=== PATIENT | male | born 1965 | race Two or more races ===

== ENCOUNTER 2024-11-30 08:46 | Inpatient (IN) | payer MEDICAID, OTHER ==
[~2024-11-30] VITALS: Ht 162.6 cm; Wt 67.1 kg
--- NOTE | 2024-11-30 09:15 | ED.PDOC ---
GI ASSESSMENT HPI Comments This is a 59 year old male presenting to the ED with chief complaint of diarrhea with blood in stools. Patient reports that he has been experiencing diarrhea for the past 2 weeks with associated blood in stools. Patient relays that he has history of ulcerative colitis, however, he is not currently on any antibiotics, steroids, or blood thinners. Patient denies any melena, abdominal pain, nausea, vomiting, fever, or chills. Chief Complaint: Diarrhea Time Seen by MD: 09:13 Reviewed Notes: Nurses Notes, Medications, Allergies Allergies: Coded Allergies: NO KNOWN ALLERGIES (Unverified , 11/30/24) Information Source: Patient Mode of Arrival: Ambulatory Timing: Weeks Duration: Since onset Prehospital treatment: None Quality: None Vomitus: None Stool: Blood Streaked, Watery Severity: Moderate Recent: None Recent Hx of: Diabetes, Ulcer Disease Pain Location: None Modifying Factors: Nothing Associated sign and symptoms: Diarrhea, Blood in Stool Past Medical History PAST MEDICAL HISTORY: DM, HTN Past Medical History (Other): Ulcerative Colitis, Polio Surgical History (Other): Lt hip surgery Family History Family History: Reviewed,noncontributory to illness Social History Smoker: Non-Smoker Alcohol: Denies ETOH Use Drugs: Denies Drug Use Lives In: Home Constitutional: denies: chills, diaphoresis, fatigue, fever, malaise, sweats, weakness, others EENTM: denies: blurred vision, double vision, ear bleeding, ear discharge, ear drainage, ear pain, ear ringing, eye pain, eye redness, hearing loss, mouth pain, mouth swelling, nasal discharge, nose bleeding, nose congestion, nose pain, photophobia, tearing, throat pain, throat swelling, voice changes, others Respiratory: denies: cough, hemoptysis, orthopnea, SOB at rest, shortness of breath, SOB with excertion, stridor, wheezing, others Cardiovascular: denies: chest pain, dizzy spells, diaphoresis, Dyspnea on exertion, edema, irregular heart beat, left arm pain, lightheadedness, palpitations, PND, syncope, others Gastrointestinal: reports: blood streaked bowels, diarrhea; denies: abdomen distended, abdominal pain, constipated, dysphagia, difficulty swallowing, mallorie temesis, melena, nausea, poor appetite, poor fluid intake, rectal bleeding, rectal pain, vomiting, others Genitourinary: denies: burning, dysuria, flank pain, frequency, hematuria, incontinence, penile discharge, penile sore, pain, testicle pain, testicle swelling, urgency, others Neurological: denies: dizziness, fainting, headache, left sided numbness, left sided weakness, numbness, paresthesia, pre-existing deficit, right sided numbness, right sided weakness, seizure, speech problems, tingling, tremors, weakness, others Musculoskeletal: denies: back pain, gout, joint pain, joint swelling, muscle pain, muscle stiffness, neck pain, others Integumetry: denies: bruises, change in color, change in hair/nails, dryness, laceration, lesions, lumps, rash, wounds, others Allergic/Immunocompromised: denies: Difficulty Healing, Frequent Infections, Hives, Itching, others Hematologic/Lymphatic: denies: anemia, blood clots, easy bleeding, easy bruising, swollen glands, others Endocrine: denies: excessive hunger, excessive sweating, excessive thirst, excessive urination, flushing, intolerance to cold, intolerance to heat, unexplained weight gain, unexplained weight loss, others Psychiatric: denies: anxiety, bipolar disorder, depression, hopeless, panic disorder, schizophrenia, sleepless, suicidal, others All Other Systems: Reviewed and Negative Physical Exam General Appearance: Moderate Distress, Normal HEENT: Normal ENT Inspection, Pharynx Normal, TMs Normal Neck: Full Range of Motion, Non-Tender, Normal, Normal Inspection Respiratory: Chest Non-Tender, Lungs Clear, No Accessory Muscle Use, No Respiratory Distress, Normal Breath Sounds Cardiovascular: No Edema, No JVD, No Murmur, No Gallop, Normal Peripheral Pu lses, Regular Rate/Rhythm Breast Exam: Deferred Gastrointestinal: No Organomegaly, Non Tender, No Pulsatile Mass, Normal Bowel Sounds, Soft Genitalia: Deferred Pelvic: Deferred Rectal: Deferred Extremities: Decreased range of motion (Left lower extremity affected by polio), No calf tenderness, Non-tender, No pedal edema Musculoskeletal : Apperance: Normal Neurologic: Alert, cath lab II-XII nml as Tested, Motor Weakness (Left lower extremity effects of by polio), Normal Affect, Normal Mood, No Sensory Deficits Cerebellar Function: NOT DONE Reflexes: NOT DONE Skin: Dry, Normal Color, Warm Peripheral Pulses: 3+ Radial (R), 3+ Radial (L) Lymphatic: No Adenopathy Was a procedure done? Was a procedure done?: No GI differential Dx Differential Diagnosis: Constipation, Diverticular disease, Esophagitis, Gastritis/PUD, Gastroenteritis X-Ray, Labs, Meds, VS Vital Signs Date Time Temp Pulse Resp B/P (MAP) Pulse Ox O2 Delivery O2 Flow Rate FiO2 11/30/24 09:36 97.9 87 18 120/69 (86) 97 97.9 11/30/24 08:47 97.9 94 18 129/85 95 97.9 Current Medications Medications (Trade) Dose Ordered Sig/Sourav Route Start Time Stop Time Status Last Admin Diphenoxylate HCl/ Atropine (Lomotil Tablet) 5 mg ONCE ONCE PO 11/30/24 09:15 11/30/24 09:16 DC 11/30/24 09:28 Patient alert. Complaining of diarrhea. History ulcerative colitis polio. Vitals stable. Was given Lomotil. Explained to the patient. Continue monitoring. Time of 1ST Reevaluation: 10:12 Reevaluation 1ST: Unchanged Patient Education/Counseling: Diagnosis, Treatment Family Education/Counseling: No Family Present SEPSIS Sepsis Screen Date sepsis recognized/suspect: Nov 30, 2024 Time Sepsis recognized/suspect: 0848 Recent Procedure: No On Antibiotic Therapy: No Respiratory Rate >20: No Heart Rate >90: No Temp<36 C (96.8 F) or >38.3 C: No SBP <90 or MAP <65 mmHG: No New Acute Mental Status Change: No Is the patient on CPAP, BIPAP,: No Physician Orders Complete Blood Count (11/30/24 09:11) Basic Metabolic Panel (11/30/24 09:11) Sodium Chloride 0.9% (11/30/24 09:15) Sodium Chloride 0.9% (11/30/24 09:15) Saline Lock (11/30/24 09:22) Vital Signs Date Time Temp Pulse Resp B/P (MAP) Pulse Ox O2 Delivery O2 Flow Rate FiO2 11/30/24 09:36 97.9 87 18 120/69 (86) 97 97.9 11/30/24 08:47 97.9 94 18 129/85 95 97.9 Medications Medications Dose Ordered Sig/Sourav Route Start Time Stop Time Status Last Admin Dose Admin Diphenoxylate HCl/ Atropine 5 mg ONCE ONCE PO 11/30/24 09:15 11/30/24 09:16 DC 11/30/24 09:28 Departure 1 Departure Time of Disposition: 09:38 Impression: Primary Impression: Colitis Disposition: ADMITTED INPATIENT Admit to: Med Surg Condition: Guarded Critical Care Note Critical Care Time?: No Stability Stability form required: No Heart Score Heart Score: Heart Score Response (Comments) Value History N/A 0 EKG N/A 0 Age N/A 0 Risk Factors N/A 0 Troponin N/A 0 Total 0 I personally scribed for YEN ACUÑA MD ([email or web address]) on 11/30/24 at 09:15. Electronically submitted by Junior Norwood ([email or web address]). YEN ACUÑA MD Nov 30, 2024 09:15
[2024-11-30] MEDS: DIPHENOXYLATE W/ATROPINE 2.5 MG TAB PO ONE (09:28)
[2024-11-30] MEDS: SODIUM CHLORIDE 0.9% 1,000 ML IV ONE ×2 (09:41)
[2024-11-30 09:52] LABS: Hematocrit 41.2 % (41.0-53.0); Hemoglobin 13.5 g/dL (13.5-17.5); Mean Corpuscular Hemoglobin 26.1 pg (28.0-32.0); Mean Corpuscular Volume 79.5 fL (80.0-100.0); Nucleated Red Blood Cells % 0.0 %
[2024-11-30 10:03] LABS: Chloride 105 mmol/L (98-107); Potassium 3.8 mmol/L (3.5-5.1); Sodium 139 mmol/L (136-145)
[2024-11-30 10:04] LABS: Anion Gap 9 (5-15); Carbon Dioxide 25 mmol/L (20-31)
[2024-11-30 10:05] LABS: Calcium 9.7 mg/dL (8.7-10.4)
[2024-11-30 10:09] LABS: BUN/Creatinine Ratio 15.5 (10.0-20.0); Blood Urea Nitrogen 15 mg/dL (9-23); Glucose 110 mg/dL (74-106)
--- NOTE | 2024-11-30 12:34 | DVHHP2 ---
History of Present Illness Reason for Visit: diarrhe and rectal bleeding History of Present Illness 59-year-old male with past medical history of type 2 diabetes mellitus, hypertension, ulcerative colitis, and right shoulder arthritis presents with 2 weeks of diarrhea associated with blood clots in the stool. He states he has a known diagnosis of ulcerative colitis and is on medication, with follow-up by a director craft center. His last colonoscopy was over a year ago. He denies fever, abdominal pain, nausea, vomiting, chest pain, or shortness of breath. No recent travel, sick contacts, or antibiotic use. Patient reports decreased oral intake over the past few days. reviewed labs and imaging from ed cbc unremarkable, cmp unremarkable, ns provided and lomital, will admit for iv hydration and gi consult Past Medical History See HPI above Past Surgical History See HPI above Past Social History The patient lives at home, denies smoking, alcohol or illicit drugs abuse. Review of Systems Constitutional: No: Fever, Chills, Sweats, Weakness, Malaise, Other Eyes: No: Pain, Vision change, Conjunctivae inflammation, Eyelid inflammation, Other, Redness ENT: No: Ear pain, Ear discharge, Nose pain, Nose discharge, Nose congestion, Mouth pain, Mouth swelling, Throat pain, Throat swelling, Other Respiratory: No: Cough, Dry, Shortness of breath, SOB with excertion, Wheezing, Hemoptysis, Pleuritic Pain, Sputum, Wheezing, Other Cardiovascular: No: Chest Pain, Palpitations, Orthopnea, Paroxysmal Noc. Dyspnea, Edema, Lt Headedness, Other Gastrointestinal: Abdominal Pain, Hematochezia; No: Nausea, Vomiting, Diarrhea, Constipation, Melena, Other Genitourinary: No Dysuria, No Frequency, No Incontinence, No Hematuria, No Retention, No Other Musculoskeletal: No: other, neck pain, shoulder pain, arm pain, back pain, hand pain, leg pain, foot pain Skin: No: Rash, Lesions, Jaundice, Bruising, Other Neurological: No: Weakness, Numbness, Incoordination, Change in speech, Confusion, Seizures, Other Allergies: Coded Allergies: NO KNOWN ALLERGIES (Unverified , 11/30/24) Exam Vital Signs Vital Signs Date Time Temp Pulse Resp B/P (MAP) Pulse Ox O2 Delivery O2 Flow Rate FiO2 11/30/24 09:36 87 18 97 Room Air 11/30/24 09:36 97.9 120/69 (86) 97.9 General Appearance: Alert, Oriented X3, Cooperative, No acute distress HEENT: Atraumatic, PERRLA, EOMI, Mucous membr. moist/pink Respiratory: Clear to auscultation, Normal air movement Cardiovascular: Regular rate, Normal S1, Normal S2, No murmurs Abdominal: Normal bowel sounds, Soft, No tenderness, No hepatospenomegaly, No masses Extremities: No clubbing, No cyanosis, No edema, Normal pulses, No tenderness/swelling Skin: No rashes, No breakdown, No significant lesion Neuro: Normal gait, Normal speech, Strength at 5/5 X4 ext, Normal tone, Sensa tion intact, Cranial nerves 3-12 NL Psych/Mental Status: Mental status NL, Mood NL Labs/Xrays I reviewed labs, imaging CT scan abdomen pelvis, EKG and all diagnostic studies on this patient from ED records and the medical chart Labs Test 11/30/24 09:20 Range/Units White Blood Count 3.8 L 4.4-10.8 10^3/uL Red Blood Count 5.18 4.5-5.90 10^6/uL Hemoglobin 13.5 13.5-17.5 g/dL Hematocrit 41.2 41.0-53.0 % Mean Corpuscular Volume 79.5 L 80.0-100.0 fL Mean Corpuscular Hemoglobin 26.1 L 28.0-32.0 pg Mean Corpuscular Hemoglobin Concent 32.8 32.0-36.0 g/dL Red Cell Distribution Width 18.2 H 11.8-14.3 % Platelet Count 291 140-450 10^3/uL Mean Platelet Volume 7.3 6.9-10.8 fL Neutrophils (%) (Auto) 56.5 37.0-80.0 % Lymphocytes (%) (Auto) 21.9 10.0-50.0 % Monocytes (%) (Auto) 17.8 H 0.0-12.0 % Eosinophils (%) (Auto) 3.5 0.0-7.0 % Basophils (%) (Auto) 0.3 0.0-2.0 % Neutrophils # (Auto) 2.1 1.6-8.6 10 ^3/uL Lymphocytes # (Auto) 0.8 0.4-5.4 10 ^3/uL Monocytes # (Auto) 0.7 0-1.3 10 ^3/uL Eosinophils # (Auto) 0.1 0-0.8 10 ^3/uL Basophils # (Auto) 0 0-0.2 10 ^3/uL Nucleated Red Blood Cells 0.0 % Sodium Level 139 136-145 mmol/L Potassium Level 3.8 3.5-5.1 mmol/L Chloride Level 105 98-107 mmol/L Carbon Dioxide Level 25 20-31 mmol/L Anion Gap 9 5-15 Blood Urea Nitrogen 15 9-23 mg/dL Creatinine 0.97 0.700-1.30 mg/dL Glomerular Filtration Rate Calc 90 >90 mL/min BUN/Creatinine Ratio 15.5 10.0-20.0 Serum Glucose 110 H 74-106 mg/dL Calcium Level 9.7 8.7-10.4 mg/dL SEPSIS Sepsis Screen Date sepsis recognized/suspect: Nov 30, 2024 Time Sepsis recognized/suspect: 847 Recent Procedure: No On Antibiotic Therapy: No Respiratory Rate >20: No Heart Rate >90: No Temp<36 C (96.8 F) or >38.3 C: No SBP <90 or MAP <65 mmHG: No New Acute Mental Status Change: No Is the patient on CPAP, BIPAP,: No Physician Orders Sodium Chloride 0.9% (11/30/24 09:15) Saline Lock (11/30/24 09:22) Ct Ab Pel Wo Con-No Oral Or Iv (11/30/24 12:31) Admit (11/30/24 12:31) Allergies (11/30/24 12:31) Code Status (11/30/24 12:31) 0.9% Ns 1000 Ml (11/30/24 12:45) Temazepam (Restoril) (11/30/24 12:45) Ondansetron Hcl (Zofran) (11/30/24 12:45) Complete Blood Count (12/01/24 04:00) Comprehensive Metabolic Panel (12/01/24 04:00) Condition: Stable (11/30/24 12:31) Clear Liq Diet (11/30/24 Lunch) BRP (11/30/24 12:31) Morphine Sulfate Injection (11/30/24 12:45) Sequential Compression Device (11/30/24 ) Nitroglycerin Sublingual (Ntrostat Subli (11/30/24 12:45) Stat Ekg For Chest Pain (11/30/24 12:31) Notify Md Of Changes From Base (11/30/24 12:31) Senior Planner For 24 Hours (11/30/24 12:31) Emergency Dysrhythmia Protocol (11/30/24 12:31) Rhythm Strips Once Every Shift (11/30/24 12:31) Oxygen By Nasal Cannula (11/30/24 12:31) Pantoprazole (Protonix) (11/30/24 12:45) Pantoprazole (Protonix) (12/01/24 10:00) * Gi Dvh Rocket Motor Mechanic (11/30/24 12:31) Clostridium Difficile Toxin (11/30/24 12:31) Vital Signs Date Time Temp Pulse Resp B/P (MAP) Pulse Ox O2 Delivery O2 Flow Rate FiO2 11/30/24 09:36 87 18 97 Room Air 11/30/24 09:36 97.9 87 18 120/69 (86) 97 97.9 11/30/24 08:47 97.9 94 18 129/85 95 97.9 Laboratory Tests Test 11/30/24 09:20 White Blood Count 3.8 10^3/uL (4.4-10.8) L Medications Medications Dose Ordered Sig/Sourav Route Start Time Stop Time Status Last Admin Dose Admin Diphenoxylate HCl/ Atropine 5 mg ONCE ONCE PO 11/30/24 09:15 11/30/24 09:16 DC 11/30/24 09:28 5 MG Sodium Chloride 1,000 ml @ 1,000 mls/hr Q1H ONCE IV 11/30/24 09:15 11/30/24 10:14 DC 11/30/24 09:41 1,000 MLS/HR Assessment/Plan Assessment/Plan 59 yr old male Ulcerative colitis flare with hematochezia requires GI evaluation, possible colonoscopy, and IV hydration. acute Ulcerative colitis flare with hematochezia ordered ct scan abd pelvis fu results GI consult for evaluation and management Consider colonoscopy if indicated to be determined by gi Continue home ulcerative colitis medications if pt provides dosage IV hydration and bowel rest as needed Monitor H/H every am; transfuse if Hb <7 g/dL or symptomatic acute Diarrhea with blood clots Send stool studies C. diff, culture Monitor frequency and character of stools chronic problems Type 2 diabetes mellitus Monitor glucose ACHS Hypertension Continue home antihypertensives Arthritis, right shoulder Continue supportive care and pain control as needed FEN / PPx Fluids: IV NS at maintenance rate Electrolytes: Monitor and replace as needed Nutrition: clr liquid for now DVT Prophylaxis: Hold pharmacologic prophylaxis until GI bleeding resolves; use SCDs GI Prophylaxis: PPI IV daily Disposition Admit to medical floor for GI evaluation, hydration, and monitoring. Plan discussed with: Patient My Orders Orders - TOR LEONARDO DNP Procedure Category Date Status Time Ct Ab Pel Wo Con-No CT 11/30/24 Verified Oral Or Iv 12:31 Admit ADMIT 11/30/24 Verified 12:31 Allergies LAZ 11/30/24 Verified 12:31 Code Status CODE 11/30/24 Verified 12:31 0.9% Ns 1000 Ml PHA 11/30/24 Verified 12:45 Temazepam (Restoril) PHA 11/30/24 Verified 12:45 Ondansetron Hcl PHA 11/30/24 Verified (Zofran) 12:45 Complete Blood Count LAB 12/01/24 Verified 04:00 Comprehensive LAB 12/01/24 Verified Metabolic Panel 04:00 Condition: Stable [facility] 11/30/24 Verified 12:31 Clear Liq Diet DIET 11/30/24 Verified Lunch BRP [facility] 11/30/24 Verified 12:31 Morphine Sulfate PHA 11/30/24 Verified Injection 12:45 Sequential [facility] 11/30/24 Verified Compression Device Nitroglycerin PHA 11/30/24 Verified Sublingual (Ntrostat 12:45 Stat Ekg For Chest [facility] 11/30/24 Verified Pain 12:31 Notify Md Of Changes [facility] 11/30/24 Verified From Base 12:31 Senior Planner For [facility] 11/30/24 Verified 24 Hours 12:31 Emergency Dysrhythmia [facility] 11/30/24 Verified Protocol 12:31 Rhythm Strips Once [facility] 11/30/24 Verified Every Shift 12:31 Oxygen By Nasal RT 11/30/24 Verified Cannula 12:31 Pantoprazole PHA 11/30/24 Verified (Protonix) 12:45 Pantoprazole PHA 12/01/24 Verified (Protonix) 10:00 * Gi Dvh Rocket Motor Mechanic CONS 11/30/24 Verified 12:31 Clostridium Difficile KEIRA 11/30/24 Verified Toxin 12:31 Date of Service: Nov 30, 2024 Billing Provider: TOR LEONARDO DNP Common Visit Codes: [id number] INP/OBS CARE (HIGH) TOR LEONARDO DNP Nov 30, 2024 12:34
[2024-11-30] MEDS ORDERED: TEMAZEPAM 15 MG CAP PO PRN (12:45)
[2024-11-30] MEDS ORDERED: MORPHINE SULFATE INJ 2 MG/ml SYRG IV PRN (12:45)
[2024-11-30] MEDS ORDERED: NITROGLYCERIN 0.4 MG SL TAB SL PRN (12:45)
[2024-11-30] MEDS ORDERED: ONDANSETRON HCL 4 MG/2 ML VIAL IV PRN (12:45)
--- NOTE | 2024-11-30 13:14 | DVH ---
CT CT AB PEL WO CON-NO ORAL OR IV INDICATION: acute lower gi bleed EXAM DATE: 11/30/2024 12:39 PM COMPARISON: None RADIATION DOSE: CTDIvol: 6 mGy, DLP: 332 mGy*cm PROCEDURE: Helical CT images were obtained of the abdomen and pelvis without IV contrast Sagittal and coronal reconstructions are provided. ORAL CONTRAST: None. ADDITIONAL IMAGES / REFORMATS: None All C T scans at this medical facility are performed using dose modulation techniques as appropriate to a p erformed exam including the following: Automated exposure control was utilized; adjustment of the MA and/or KV according to patient size; and use of iterative reconstruction technique. FINDINGS: LUNG BASE: Normal. LIVER: Normal. GALLBLADDER AND BILIARY TREE: No calcified gallstones. Normal caliber wall. No intra- or extrahepatic biliary ductal dilation. PANCREAS: Normal. SPLEEN: Normal. BOWEL: Normal appendix. ADRENALS: Normal. KIDNEYS AND URETER: Normal. BLADDER: Normal. REPRODUCTIVE ORGANS: Normal. LYMPH NODES:No lymphadenopathy. PERITONEUM: No ascites or free air. No other fluid collection. VESSELS: Scattered atherosclerotic calcifications are noted. RETROPERITONEUM: Normal. ABDOMINAL WALL: Normal. BONES: Scattered osseous degenerative changes are noted. 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 IMPRESSION: Fluid filled colon could be diarrhea with mild right hemicolon wall thickening could be colitis. Cassidy sylvie no intraluminal hyperdense material seen to suggest for bleed.
--- NOTE | 2024-11-30 14:38 | DVHINCON2 ---
GI Consult Consult Note GI consult note Date of Consultation: 11/30/2024 Chief Complaint: Rectal bleed diarrhea Referring Physician: Renzo CHIRINOS H&P: 59-year-old male with past medical history of DM, HTN, ulcerative colitis, right shoulder arthritis, polio, presents to ER with blood clots in stool and diarrhea. Patient is in ER lobby. Patient gives history of loose stool for the past two weeks, about 5-6 episodes of bowel movements per day, with red blood in stool. Patient has history of ulcerative colitis. Treated at [facility] with celgene medications. Last colonoscopy more than one year ago Past Medical History: Dm, HTN, ulcerative colitis, polio Past Surgical History: Left hip surgery Social History: NO smoking, drinking ETOH and use of illegal drugs. Family History: Noncontributory Review of Systems: Constitutional: no fever, chill, weight loss HEENT: no eye pain, no hearing loss, no oral lesion, no scleral icterus Heart: no chest pain, no chest pressure Lung: no cough, no dyspnea with exertion Abdomen: see HPI Physical exam: General: NAD, AAOX3 Chest: lung valverde clear to auscultation Heart: RRR, no murmur Abdomen: non-distended, no tenderness to palpation, +BS Labs: Labs Test 11/30/24 09:20 Range/Units White Blood Count 3.8 L 4.4-10.8 10^3/uL Red Blood Count 5.18 4.5-5.90 10^6/uL Hemoglobin 13.5 13.5-17.5 g/dL Hematocrit 41.2 41.0-53.0 % Mean Corpuscular Volume 79.5 L 80.0-100.0 fL Mean Corpuscular Hemoglobin 26.1 L 28.0-32.0 pg Mean Corpuscular Hemoglobin Concent 32.8 32.0-36.0 g/dL Red Cell Distribution Width 18.2 H 11.8-14.3 % Platelet Count 291 140-450 10^3/uL Mean Platelet Volume 7.3 6.9-10.8 fL Neutrophils (%) (Auto) 56.5 37.0-80.0 % Lymphocytes (%) (Auto) 21.9 10.0-50.0 % Monocytes (%) (Auto) 17.8 H 0.0-12.0 % Eosinophils (%) (Auto) 3.5 0.0-7.0 % Basophils (%) (Auto) 0.3 0.0-2.0 % Neutrophils # (Auto) 2.1 1.6-8.6 10 ^3/uL Lymphocytes # (Auto) 0.8 0.4-5.4 10 ^3/uL Monocytes # (Auto) 0.7 0-1.3 10 ^3/uL Eosinophils # (Auto) 0.1 0-0.8 10 ^3/uL Basophils # (Auto) 0 0-0.2 10 ^3/uL Nucleated Red Blood Cells 0.0 % Sodium Level 139 136-145 mmol/L Potassium Level 3.8 3.5-5.1 mmol/L Chloride Level 105 98-107 mmol/L Carbon Dioxide Level 25 20-31 mmol/L Anion Gap 9 5-15 Blood Urea Nitrogen 15 9-23 mg/dL Creatinine 0.97 0.700-1.30 mg/dL Glomerular Filtration Rate Calc 90 >90 mL/min BUN/Creatinine Ratio 15.5 10.0-20.0 Serum Glucose 110 H 74-106 mg/dL Calcium Level 9.7 8.7-10.4 mg/dL Imaging: CT abdomen pelvis IMPRESSION: Fluid filled colon could be diarrhea with mild right hemicolon wall thickening could be colitis. However no intraluminal hyperdense material seen to suggest for bleed. Assessment: Diarrhea Hematochezia Ulcerative colitis Plan: Discussed with Dr. Puga Home meds Prednisone 20 mg every day Monitor lab Stool for bacterial culture and C diff IV Flagyl We will continue to monitor patient Thank you for this consult Date of Service: Nov 30, 2024 Billing Provider: DAWN FONG Common Visit Codes: CONSULT ONLY Consultation Codes: [id number] CONSULT <60MIN DAWN FONG Nov 30, 2024 14:38
[2024-11-30] MEDS: SODIUM CHLORIDE 0.9% 1,000 ML IV SCH (14:56)
[2024-11-30] MEDS: PANTOPRAZOLE 40 MG/10 ML VIAL INJ IV ONE (15:01)
[2024-12-01] VITALS (8 sets, daily range): BP systolic 110–119; BP diastolic 57–76; PULSE 79–91; RESP 14–20; TEMP 97.8–98.4; O2SAT 0–98
[2024-12-01 06:40] LABS: Hematocrit 35.4 % (41.0-53.0); Hemoglobin 12.0 g/dL (13.5-17.5); Mean Corpuscular Hemoglobin 27.0 pg (28.0-32.0); Mean Corpuscular Volume 79.4 fL (80.0-100.0); Nucleated Red Blood Cells % 0.1 %
[2024-12-01 06:51] LABS: Alanine Aminotransferase 16 U/L (7-40); Anion Gap 12 (5-15); BUN/Creatinine Ratio 19.4 (10.0-20.0); Blood Urea Nitrogen 14 mg/dL (9-23); Calcium 8.9 mg/dL (8.7-10.4); Carbon Dioxide 22 mmol/L (20-31); Chloride 106 mmol/L (98-107); Potassium 3.6 mmol/L (3.5-5.1); Sodium 140 mmol/L (136-145); Total Protein 6.7 g/dL (5.7-8.2)
[2024-12-01 06:52] LABS: Albumin 4.0 g/dL (3.2-4.8); Alkaline Phosphatase 162 U/L (46-116); Bilirubin, Total 1.1 mg/dL (0.2-1.0); Glucose 56 mg/dL (74-106)
[2024-12-01] MEDS: PANTOPRAZOLE 40 MG/10 ML VIAL INJ IV SCH (09:22)
[2024-12-01] MEDS: predniSONE 20 MG TAB PO SCH (09:22)
--- NOTE | 2024-12-01 16:43 | DVHPN2 ---
Progress Note - Dictate Date Seen: Dec 01, 2024 Medical Necessity Reason Pt with a Central, PICC or Fol: No Subjective No new complaints, patient is sitting at the edge of the bed No rectal bleeding today in fact patient has not had a bowel movement Last colonoscopy was with [facility] one or two years ago and he was diagnosed with ulcerative colitis vital signs Vital Sign Date Time Temp Pulse Resp B/P (MAP) Pulse Ox O2 Delivery O2 Flow Rate FiO2 12/01/24 16:15 97.8 79 20 116/76 (89) 98 97.8 12/01/24 08:00 Room Air* 0 21 Total Intake and Output 11/30/24 11/30/24 12/01/24 15:00 23:00 07:00 Intake Total 1000 ml 125 ml Balance 1000 ml 125 ml medications Current Medications Medications Dose Ordered Sig/Sourav Route Start Time Stop Time Status Last Admin Dose Admin Sodium Chloride 1,000 ml @ 120 mls/hr Q8H20M IV 11/30/24 12:45 Temazepam 15 mg QHSP PRN PO 11/30/24 12:45 Ondansetron HCl 4 mg Q4HP PRN IV 11/30/24 12:45 Morphine Sulfate 2 mg Q4HPRN PRN IV 11/30/24 12:45 Nitroglycerin 0.4 mg Q5MINP PRN SL 11/30/24 12:45 Pantoprazole Sodium 40 mg DAILY IV 12/01/24 10:00 12/01/24 09:22 40 MG Prednisone 20 mg DAILY PO 12/01/24 10:00 12/01/24 09:22 20 MG Metronidazole 100 ml @ 100 mls/hr Q8H IV 12/01/24 02:30 12/01/24 09:22 100 MLS/HR Mesalamine 800 mg TID PO 12/01/24 22:00 UNV objective General: NAD, AAOX3 Chest: lung valverde clear to auscultation Heart: RRR, no murmur Abdomen: non-distended, no tenderness to palpation, +BS laboratory and microbiology Laboratory Tests 12/01/24 04:20 Test 12/01/24 04:20 Range/Units Serum Glucose 56 L 74-106 mg/dL Problems(with codes): (1) Colitis (2) Abnormal finding on GI tract imaging Prognosis Plan Advance diet as tolerated I started her on mesalamine 800 mg p.o. three times a day Prednisone 20 mg p.o. daily Discharge planning if the patient remains stable over the next 24 hours He was advised outpatient follow up with me in 4-6 weeks to discuss elective colonoscopy or follow up with his spike machine operator Plan discussed with: Patient, Spouse, Other (Nurse and Dr Lee) MINNA ENGLAND MD Dec 01, 2024 16:43
--- NOTE | 2024-12-01 17:09 | DVHPN2 ---
Subjective I am assuming the care of the patient promptly on meds who was under the care of the hospitalist team. Is a follow up on ulcerative colitis flare up. Patient currently denies any blood in the stool. Changes from previous H/P or p: No Changes Eyes: No Pain, No Vision change, No Conjunctivae inflammation, No Eyelid inflammation, No Other, No Redness ENT: No Ear pain, No Ear discharge, No Nose pain, No Nose discharge, No Nose congestion, No Mouth pain, No Mouth swelling, No Throat pain, No Throat swelling, No Other Cardiovascular: No Chest Pain, No Palpitations, No Orthopnea, No Paroxysmal Noc. Dyspnea, No Edema, No Lt Headedness, No Other Respiratory: No Cough, No Dry, No Shortness of breath, No SOB with excertion, No Wheezing, No Hemoptysis, No Pleuritic Pain, No Sputum, No Other Gastrointestinal: No Nausea, No Vomiting; Abdominal Pain; No Diarrhea, No Constipation, No Melena; Hematochezia; No Other Genitourinary: No Dysuria, No Frequency, No Incontinence, No Hematuria, No Retention, No Other Musculoskeletal: No other, No neck pain, No shoulder pain, No arm pain, No back pain, No hand pain, No leg pain, No foot pain Skin: No Rash, No Lesions, No Jaundice, No Bruising, No Other Objective Vitals Vital Signs Date Time Temp Pulse Resp B/P (MAP) Pulse Ox O2 Delivery O2 Flow Rate FiO2 12/01/24 16:15 97.8 79 20 116/76 (89) 98 97.8 12/01/24 08:00 Room Air* 0 21 Intake/Output Intake and Output 12/01/24 07:00 Intake Total 1125 ml Balance 1125 ml Intake Oral 125 ml IV Total 1000 ml Exam HEENT pupils are reactive Neck is supple CV is S1-S2 regular rate and rhythm Respiratory bilateral clear GI positive bowel sounds , soft nondistended nontender no guarding no rigidity. 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 Medications Current Medications Medications Dose Ordered Sig/Sourav Route Start Time Stop Time Status Last Admin Dose Admin Sodium Chloride 1,000 ml @ 120 mls/hr Q8H20M IV 11/30/24 12:45 Temazepam 15 mg QHSP PRN PO 11/30/24 12:45 Ondansetron HCl 4 mg Q4HP PRN IV 11/30/24 12:45 Morphine Sulfate 2 mg Q4HPRN PRN IV 11/30/24 12:45 Nitroglycerin 0.4 mg Q5MINP PRN SL 11/30/24 12:45 Pantoprazole Sodium 40 mg DAILY IV 12/01/24 10:00 12/01/24 09:22 40 MG Prednisone 20 mg DAILY PO 12/01/24 10:00 12/01/24 09:22 20 MG Metronidazole 100 ml @ 100 mls/hr Q8H IV 12/01/24 02:30 12/01/24 09:22 100 MLS/HR Mesalamine 800 mg TID PO 12/01/24 22:00 Laboratory Results Laboratory Tests 12/01/24 04:20 Chemistry Test 12/01/24 04:20 Albumin 4.0 g/dL (3.2-4.8) Calcium Level 8.9 mg/dL (8.7-10.4) Total Protein 6.7 g/dL (5.7-8.2) LFT Test 12/01/24 04:20 Alanine Aminotransferase (ALT) 16 U/L (7-40) Alkaline Phosphatase 162 U/L (46-116) H Aspartate Amino Transferase (AST) 20 U/L (13-40) Total Bilirubin 1.1 mg/dL (0.2-1.0) H Assessment/Plan Assessment/Plan 59-year-old male with a known history of diabetes mellitus type 2, hypertension, ulcerative colitis DC plan in the hospital with a blood clots in stools and diarrhea. Patient was started on steroids as well as also recorded medication. 1. Ulcerative colitis flare up 2. Hematochezia, resolved 3. Diarrhea resolved next 4. Diabetes mellitus type 2 nature 5. Hypertension -follow up GI recommendation, discharge plan on ulcerative colitis medications. Plan discussed with: Patient Date of Service: Dec 01, 2024 Billing Provider: FUAD YANG MD Common Visit Codes: [id number] INP/OBS CARE(MOD) FUAD YANG MD Dec 01, 2024 17:09
--- NOTE | 2024-12-01 17:45 | DVHPN2 ---
Progress Note Medical Necessity Reason Pt with a Central, PICC or Fol: No Objective vital signs Vital Sign Date Time Temp Pulse Resp B/P (MAP) Pulse Ox O2 Delivery O2 Flow Rate FiO2 12/01/24 16:15 97.8 79 20 116/76 (89) 98 97.8 12/01/24 08:00 Room Air* 0 21 Total Intake and Output 11/30/24 11/30/24 12/01/24 15:00 23:00 07:00 Intake Total 1000 ml 125 ml Balance 1000 ml 125 ml medications Current Medications Medications Dose Ordered Sig/Sourav Route Start Time Stop Time Status Last Admin Dose Admin Sodium Chloride 1,000 ml @ 120 mls/hr Q8H20M IV 11/30/24 12:45 Temazepam 15 mg QHSP PRN PO 11/30/24 12:45 Ondansetron HCl 4 mg Q4HP PRN IV 11/30/24 12:45 Morphine Sulfate 2 mg Q4HPRN PRN IV 11/30/24 12:45 Nitroglycerin 0.4 mg Q5MINP PRN SL 11/30/24 12:45 Pantoprazole Sodium 40 mg DAILY IV 12/01/24 10:00 12/01/24 09:22 40 MG Prednisone 20 mg DAILY PO 12/01/24 10:00 12/01/24 09:22 20 MG Metronidazole 100 ml @ 100 mls/hr Q8H IV 12/01/24 02:30 12/01/24 09:22 100 MLS/HR Mesalamine 800 mg TID PO 12/01/24 22:00 laboratory and microbiology Laboratory Tests 12/01/24 04:20 Test 12/01/24 04:20 Range/Units Serum Glucose 56 L 74-106 mg/dL ARMAAN ANNA [facility] RES[facility] Dec 01, 2024 17:45
[2024-12-01] MEDS: MESALAMINE 400mg Delayed Release Cap PO SCH (21:54)
[2024-12-02 05:07] VITALS: BP 114/80; PULSE 69; RESP 14; TEMP 98; O2SAT 97
[2024-12-02 09:00] VITALS: BP 129/77; PULSE 73; RESP 16; TEMP 98; O2SAT 98
--- NOTE | 2024-12-02 12:28 | DVHPN2 ---
Progress Note - Dictate Date Seen: Dec 02, 2024 Medical Necessity Reason Pt with a Central, PICC or Fol: No Subjective No new complaints, resting comfortably No rectal bleeding today in fact patient has not had a bowel movement Last colonoscopy was with gastro group one or two years ago and he was diagnosed with ulcerative colitis vital signs Vital Sign Date Time Temp Pulse Resp B/P (MAP) Pulse Ox O2 Delivery O2 Flow Rate FiO2 12/02/24 09:00 98.0 73 16 129/77 (94) 98 98.0 12/02/24 08:00 Room Air* 0 21 Total Intake and Output 12/01/24 12/01/24 12/02/24 15:00 23:00 07:00 Intake Total 100 ml 1650 ml 250 ml Balance 100 ml 1650 ml 250 ml medications Current Medications Medications Dose Ordered Sig/Sourav Route Start Time Stop Time Status Last Admin Dose Admin Sodium Chloride 1,000 ml @ 120 mls/hr Q8H20M IV 11/30/24 12:45 Temazepam 15 mg QHSP PRN PO 11/30/24 12:45 Ondansetron HCl 4 mg Q4HP PRN IV 11/30/24 12:45 Morphine Sulfate 2 mg Q4HPRN PRN IV 11/30/24 12:45 Nitroglycerin 0.4 mg Q5MINP PRN SL 11/30/24 12:45 Pantoprazole Sodium 40 mg DAILY IV 12/01/24 10:00 12/02/24 08:52 40 MG Prednisone 20 mg DAILY PO 12/01/24 10:00 12/02/24 08:51 20 MG Metronidazole 100 ml @ 100 mls/hr Q8H IV 12/01/24 02:30 12/02/24 08:52 100 MLS/HR Mesalamine 800 mg TID PO 12/01/24 22:00 12/02/24 05:29 800 MG objective General: NAD, AAOX3 Chest: lung valverde clear to auscultation Heart: RRR, no murmur Abdomen: non-distended, no tenderness to palpation, +BS laboratory and microbiology Laboratory Tests 12/01/24 04:20 Test 12/01/24 04:20 Range/Units Serum Glucose 56 L 74-106 mg/dL Problems(with codes): (1) Abnormal finding on GI tract imaging (2) Colitis Prognosis Plan Advance diet as tolerated I started him on mesalamine 800 mg p.o. three times a day Prednisone 20 mg p.o. 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
[2024-12-02 13:00] VITALS: BP 116/66; PULSE 75; RESP 16; TEMP 97.7; O2SAT 96
[2024-12-02] MEDS ORDERED: PRED20TA2 PO (16:52)
[2024-12-02] MEDS ORDERED: PANT40TA2 PO (16:52)
[2024-12-02] MEDS ORDERED: MESA400C PO (16:52)
--- NOTE | 2024-12-02 16:54 | DVHDS2 ---
Discharge Summary Date of Admission Nov 30, 2024 at 12:31 Date of Discharge: Dec 02, 2024 Labs/Diagnostic Data: Laboratory Results Test 12/01/24 04:20 White Blood Count 3.6 10^3/uL (4.4-10.8) Red Blood Count 4.45 10^6/uL (4.5-5.90) Hemoglobin 12.0 g/dL (13.5-17.5) Hematocrit 35.4 % (41.0-53.0) Mean Corpuscular Volume 79.4 fL (80.0-100.0) Mean Corpuscular Hemoglobin 27.0 pg (28.0-32.0) Mean Corpuscular Hemoglobin Concent 34.0 g/dL (32.0-36.0) Red Cell Distribution Width 18.0 % (11.8-14.3) Platelet Count 227 10^3/uL (140-450) Mean Platelet Volume 7.8 fL (6.9-10.8) Neutrophils (%) (Auto) 62.8 % (37.0-80.0) Lymphocytes (%) (Auto) 16.3 % (10.0-50.0) Monocytes (%) (Auto) 15.1 % (0.0-12.0) Eosinophils (%) (Auto) 5.5 % (0.0-7.0) Basophils (%) (Auto) 0.3 % (0.0-2.0) Neutrophils # (Auto) 2.3 10 ^3/uL (1.6-8.6) Lymphocytes # (Auto) 0.6 10 ^3/uL (0.4-5.4) Monocytes # (Auto) 0.5 10 ^3/uL (0-1.3) Eosinophils # (Auto) 0.2 10 ^3/uL (0-0.8) Basophils # (Auto) 0 10 ^3/uL (0-0.2) Nucleated Red Blood Cells 0.1 % Sodium Level 140 mmol/L (136-145) Potassium Level 3.6 mmol/L (3.5-5.1) Chloride Level 106 mmol/L (98-107) Carbon Dioxide Level 22 mmol/L (20-31) Anion Gap 12 (5-15) Blood Urea Nitrogen 14 mg/dL (9-23) Creatinine 0.72 mg/dL (0.700-1.30) Glomerular Filtration Rate Calc 106 mL/min (>90) BUN/Creatinine Ratio 19.4 (10.0-20.0) Serum Glucose 56 mg/dL (74-106) Calcium Level 8.9 mg/dL (8.7-10.4) Total Bilirubin 1.1 mg/dL (0.2-1.0) Aspartate Amino Transferase (AST) 20 U/L (13-40) Alanine Aminotransferase (ALT) 16 U/L (7-40) Alkaline Phosphatase 162 U/L (46-116) Total Protein 6.7 g/dL (5.7-8.2) Albumin 4.0 g/dL (3.2-4.8) Other Laboratory Tests 12/01/24 04:20 Brief Hx & Hospital Course: 59-year-old male with a known history of diabetes mellitus type 2, hypertension, ulcerative colitis presented to the hospital with a blood clots in stools and diarrhea. Patient was started on steroids as well as also mesalamine medication. Patient will diet with the ulcerative colitis flare-up. Patient did complain of hematochezia and diarrhea which is resolved. Patient is being discharged in a stable condition at GI cleared the patient to be discharged on mesalamine and prednisone. Condition at Discharge: Stable Final Diagnosis/Problems List Assessment/Plan 59-year-old male with a known history of diabetes mellitus type 2, hypertension, ulcerative colitis DC plan in the hospital with a blood clots in stools and diarrhea. Patient was started on steroids as well as also recorded medication. 1. Ulcerative colitis flare up 2. Hematochezia, resolved 3. Diarrhea resolved next 4. Diabetes mellitus type 2 nature 5. Hypertension -follow up GI recommendation, discharge plan on ulcerative colitis medications. Discharge Disposition: Home SNF Discharge Will this Physician continue t: No Discharge Instruct/Medications Diet: Cardiac 2g Na,low cholest Activity: No Restrictions, As Tolerated Follow Up/Referral: Follow up with the GI in 1-2 weeks Medications: Mesalamine and prednisone as prescribed. Scheduled Mesalamine (Delzicol), 800 MG PO TID Pantoprazole Sodium Sesquihydr (Protonix), 40 MG PO DAILY Prednisone (Prednisone), 20 MG PO DAILY Discharge Statement: "Patient was advised to return to the ER or call 911 if any headaches, dizziness, shortness of breath, chest pain, abdominal pain, bleeding, fevers, or worsening of medical condition. Patient was counseled about treatment plan, medications, possible side effects, patientverbalized understanding. All questions were answered to the best of my ability. This discharge took greater then 30 minutes in planning, reviewing documentation, counseling the patient, and discussing with other team members." ASSESSMENT ASSESSMENT Assessment Assessment/Plan 59-year-old male with a known history of diabetes mellitus type 2, hypertension, ulcerative colitis DC plan in the hospital with a blood clots in stools and diarrhea. Patient was started on steroids as well as also recorded medication. 1. Ulcerative colitis flare up 2. Hematochezia, resolved 3. Diarrhea resolved next 4. Diabetes mellitus type 2 nature 5. Hypertension -follow up GI recommendation, discharge plan on ulcerative colitis medications. Date of Service: Dec 02, 2024 Billing Provider: FUAD YANG MD Common Visit Codes: [id number]/OBS DISCH DAY >30min FUAD YNAG MD Dec 02, 2024 16:54
[2024-12-02 17:00] VITALS: BP 116/72; PULSE 65; RESP 20; TEMP 97.2; O2SAT 97
== END 2024-12-02 18:32 | disposition home or self-care (01) | DRG 245 ==
LOC: ER 08:46 → OVERFLOW 12:31 → WEST WING 23:40
PROVIDERS: ADMIT Internal Medicine; ATTEND Internal Medicine
DX: K51.911 Ulcerative colitis, unspecified with rectal bleeding (principal); R71.0 Precipitous drop in hematocrit; E11.9 Type 2 diabetes mellitus without complications; I10 Essential (primary) hypertension; M19.011 Primary osteoarthritis, right shoulder; Z79.899 Other long term (current) drug therapy
CPT/HCPCS: 36415; 74176; 80048; 80053; 85025; 96374; G0378; J2470; J3490